=== PATIENT | male | born 1980 | race Caucasian/White ===

== ENCOUNTER → 2021-02-23 | Outpatient (CLI) | payer OTHER ==
[~2021-02-23] MED LIST: HYDROXYZINE HCL25 MG PO; PERCOCET 325 MG1 TA5 PO; PREDNISONE10 MG PO
== END | disposition home or self-care (01) ==
LOC: COVID19 16:02
PROVIDERS: ATTEND Internal Medicine
DX: U07.1 COVID-19 (principal)